=== PATIENT | male | born 1960 ===

== ENCOUNTER 2017-08-05 16:07 | Emergency (ER) | payer OTHER ==
[2017-08-05 16:07] VITALS: BMI 20.5
[2017-08-05 16:42] VITALS: BP 123/87; PULSE 79; RESP 18; TEMP 98; O2SAT 98
--- NOTE | 2017-08-05 17:48 | ED PDOC ---
HPI: General Adult Time Seen by Provider: 08/05/17 16:44 Chief Complaint (Nursing): Finger,Hand,&Wrist Chief Complaint (Provider): Finger pain History Per: Patient History/Exam Limitations: no limitations Onset/Duration Of Symptoms: Days (x3) Current Symptoms Are (Timing): Still Present Additional Complaint(s): Patient is a 56 y/o male who presents to the ED complaining of pain to left index finger for the past several days. States symptoms began the day after he got a manicure. Denies any fever, trauma. PMD: none Past Medical History Reviewed: Historical Data, Nursing Documentation, Vital Signs Vital Signs: Last Vital Signs Temp 98 F 08/05/17 16:39 Pulse 79 08/05/17 16:39 Resp 18 08/05/17 16:39 BP 123/87 08/05/17 16:39 Pulse Ox 98 08/05/17 18:06 - Medical History PMH: Arthritis Denies: Chronic Kidney Disease - Surgical History Other surgeries: Right knee surgery - Family History Family History: States: Unknown Family Hx - Social History Current smoker - smoking cessation education provided: Yes Alcohol: None Drugs: Denies - Immunization History Hx Tetanus Toxoid Vaccination: Yes Hx Influenza Vaccination: Yes Hx Pneumococcal Vaccination: Yes - Home Medications Home Medications: Ambulatory Orders Medication Instructions Recorded Prozac 09/19/16 oxyCODONE/Acetaminophen [Percocet 1 - 2 tab PO QID PRN #30 tab 09/19/16 5/325 mg Tab] Cephalexin [cephalexin] 500 mg PO Q6 #28 cap 08/05/17 Sulfamethoxazole/Trimethoprim 2 tab PO BID #28 tab 08/05/17 [Bactrim DS 800 mg-160 mg] - Allergies Allergies/Adverse Reactions: Allergies Allergy/AdvReac Type Severity Reaction Status Date / Time No Known Allergies Allergy Verified 09/19/16 12:50 Review of Systems ROS Statement: Except As Marked, All Systems Reviewed And Found Negative Constitutional: Negative for: Fever, Other (Trauma) Musculoskeletal: Positive for: Other (Left finger pain and swelling) Physical Exam - Reviewed Nursing Documentation Reviewed: Yes Vital Signs Reviewed: Yes - Physical Exam Appears: Positive for: Non-toxic, No Acute Distress Skin: Positive for: Normal Color Eye Exam: Positive for: Normal appearance Extremity: Positive for: Normal ROM, Other (Left 2nd digit: Nail is hypopigmented and extremely tender. No skin changes) Neurologic/Psych: Positive for: Alert, Oriented. Negative for: Motor/Sensory Deficits - ECG O2 Sat by Pulse Oximetry: 98 (RA) Pulse Ox Interpretation: Normal Medical Decision Making Medical Decision Making: Clinical Impression: Paronychia Time: 17:00 Plan: Wound care provided *see procedure note Patient is medically stable for discharge. Will d/c with Keflex and Bactrim. Counseling was provided and all questions were answered regarding diagnosis and need for follow up with PMD. There is agreement to discharge plan. Return if symptoms persist or worsen. Scribe Attestation: Documented by Feli Loera, acting as a scribe for Ron Rushing PA-C Provider Scribe Attestation: All medical record entries made by the Scribe were at my direction and personally dictated by me. I have reviewed the chart and agree that the record accurately reflects my personal performance of the history, physical exam, medical decision making, and the department course for this patient. I have also personally directed, reviewed, and agree with the discharge instructions and disposition. Procedures - Time-Out Type of Procedure: Nail trepination Site of Procedure: L 2nd digit Correct Patient (with visual ID + MR# on ID Band): Yes Correct Procedure: Yes Correct Site Marked: Yes PA/Tech: Сергей - Nail Trepanation Method of Drainage: nail cauterized Progress: Purulent material was expressed out of nail. Disposition - Clinical Impression Clinical Impression: Paronychia - Patient ED Disposition Is Patient to be Admitted: No Counseled Patient/Family Regarding: Diagnosis, Need For Followup, Rx Given - Disposition Referrals: Cher Sanders [Outside] Disposition: Routine/Home Disposition Time: 17:47 Condition: STABLE Prescriptions: Cephalexin [cephalexin] 500 mg PO Q6 #28 cap Sulfamethoxazole/Trimethoprim [Bactrim DS 800 mg-160 mg] 2 tab PO BID #28 tab Instructions: Paronychia (ED) Forms: [employer] (Maori) Print Language: ROMANIAN - POA Present On Arrival: None
== END 2017-08-05 18:01 | disposition home or self-care (01) ==
LOC: H.ER 16:07
DX: L03.012 Cellulitis of left finger (principal)